=== PATIENT | female | born 1980 | race Caucasian/White ===

== ENCOUNTER 2023-02-28 17:16 | Emergency (ER) | payer BC, SELFPAY ==
[2023-02-28 17:26] VITALS: BP 130/79; PULSE 64; RESP 16; TEMP 36.6; O2SAT 97
--- NOTE | 2023-02-28 18:25 | ED.SKABFB ---
HPI - Skin/Abscess/Foreign Bdy General Chief complaint: Skin/Abscess/Foreign Body Stated complaint: Rash Time Seen by Provider: 02/28/23 18:26 Source: patient, RN notes reviewed and old records reviewed Mode of arrival: ambulatory Limitations: no limitations History of Present Illness HPI narrative: 42-year-old female who presents to [facility] with complaints of rash to her left forearm and to her right breast extending to her right axilla for which she saw her PMD on and was treated with steroids for 5 days for the rash which did resolve then rash has reoccurred 3- 4 days ago in same spot. Patient reports that rash is itchy, she has applied Calamine lotion and also itch cream with no improvement.Rash is red raised and irregular in formation and is itchy and irritating requests steroid shot. MD complaint: rash Onset (ago): day(s) (3-4days) Severity scale (1-10): 5 Quality: pruritic and other (irritating) Treatments prior to arrival: OTC topical medication (Calamine lotion and itch cream) and other (took steroids as ordered 01/24/2023) Related Data Home Medications Medication Instructions Recorded Confirmed albuterol sulfate 90 mcg/actuation 2 puff inhalation Q4H PRN 02/28/23 02/28/23 aerosol inhaler Shortness Of Breath Or Wheezing fluoxetine 10 mg capsule 10 mg PO DAILY 02/28/23 02/28/23 fluticasone fur. 100 mcg-umeclid 2 inh inhalation DAILY 02/28/23 02/28/23 62.5 mcg-vilant 25 mcg inhalat.powder (Trelegy Ellipta) lorazepam 0.5 mg tablet 0.5 mg PO TID PRN Anxiety 02/28/23 02/28/23 metformin 500 mg tablet,extended 500 mg PO TID 02/28/23 02/28/23 release 24 hr sertraline 25 mg tablet 25 mg PO DAILY 02/28/23 02/28/23 Allergies Allergy/AdvReac Type Severity Reaction Status Date / Time prochlorperazine AdvReac Intermediate Other Verified 02/28/23 17:42 [From Compazine] Review of Systems Review of Systems: CONSTITUTIONAL: Denies fever, chills, or sweats. CARDIOVASCULAR: Denies chest pain, palpitations, or edema. RESPIRATORY: Denies cough or dyspnea. SKIN: Reports rash to left forearm, right breast radiating into her axilla. MUSCULOSKELETAL: Denies joint pain or myalgia. NEUROLOGIC: Denies headache, numbness, or weakness. All systems reviewed & are unremarkable except as noted in HPI and below PMFSH Past Medical History Medical History (Updated 03/01/23 @ 22:46 by Sharon Motley NP) Anxiety and depression Asthma Diabetes Obesity Social History Social History (Updated 03/01/23 @ 22:42 by Sharon Motley NP) Smoking status: Never smoker Alcohol intake: unknown Substance use type: does not use Living arrangements: with family Gender identity (if verbalized by the patient): Female Comments At time of signature, agree with nursing past medical, surgical, social and family history. There is no relevant family history pertinent to the presenting complaint Exam Narrative: GENERAL: Well-appearing, well-nourished,obese, and in no acute distress. HEAD: Normocephalic, atraumatic. EYES: PERRLA, conjunctivae clear, and EOMI. ENT: Mucous membranes moist. Oropharynx without edema, erythema or lesions. NECK: Supple. No lymphadenopathy CHEST: Clear to auscultation. No respiratory distress.SAO2 97% on room air HEART: Regular rate and rhythm. SKIN: Warm, dry.? Patches of red raised irregular formation to left forearm and right breast extending to axilla is itching. NEURO:? Alert and oriented x3. PSYCH: Normal mood and affect Course Course Emergency Course: Patient is aware of diagnosis, understands and agrees to treatment plan.? Anticipatory guidance given.? Patient agrees to follow-up as directed and is aware of reasons to seek care at the emergency department. Portions of this record may have been created with voice recognition software Level of Care: Express Care Visit Vital Signs Vital signs: Vital Signs Temperature 36.6 C
[2023-02-28] MEDS: methylPREDNISolone ACETATE 80 MG/ML VIAL IM (18:44)
== END 2023-02-28 19:04 | disposition home or self-care (01) ==
PROVIDERS: Emergency Provider Registered Nurse; PCP Hospitalist
DX: L25.9 Unspecified contact dermatitis, unspecified cause (principal); E11.9 Type 2 diabetes mellitus without complications; J45.909 Unspecified asthma, uncomplicated; Z79.84 Long term (current) use of oral hypoglycemic drugs; Z79.899 Other long term (current) drug therapy
CPT/HCPCS: 96372; 99213; G0463; J1040